=== PATIENT | female | born 1950 | race Caucasian/White ===

== ENCOUNTER 2025-05-10 05:34 | Day surgery (SDC) | payer OTHER ==
[2025-05-05 12:38] VITALS: BMI 17.9
[2025-05-10] MEDS ORDERED: Bupivacaine HCl 0.5%/Epinephrine 1:200,000/PF 30 ml Vial ONE ×2 (06:21→06:29)
[2025-05-10] MEDS ORDERED: CEFAZOLIN 2 GM VIAL ONE (06:21)
[2025-05-10] MEDS ORDERED: PROPOFOL 20 ML ONE ×2 (06:35→07:32)
== END 2025-05-10 09:10 | disposition home or self-care (01) ==
LOC: CSHSDC 05:34
PROVIDERS: ATTEND Surgery
PROC: 0JH60WZ Insertion of Totally Implantable Vascular Access Device into Chest Subcutaneous Tissue and Fascia, Open Approach (ICD-10-PCS; principal; 2025-05-10)
DX: C15.9 Malignant neoplasm of esophagus, unspecified (principal); I10 Essential (primary) hypertension; I48.91 Unspecified atrial fibrillation; J44.9 Chronic obstructive pulmonary disease, unspecified; E78.5 Hyperlipidemia, unspecified; F32.9 Major depressive disorder, single episode, unspecified; K21.9 Gastro-esophageal reflux disease without esophagitis; Z87.891 Personal history of nicotine dependence; Z98.41 Cataract extraction status, right eye; Z98.42 Cataract extraction status, left eye; Z79.51 Long term (current) use of inhaled steroids; Z79.82 Long term (current) use of aspirin; Z79.899 Other long term (current) drug therapy
CPT/HCPCS: 36561; 71045; J1642; J2704; A6258; C1788